=== PATIENT | female | born 1985 | race Caucasian/White ===

== ENCOUNTER → 2021-03-06 07:52 | Outpatient (CLI) | payer OTHER, SELFPAY ==
[2021-03-07 13:33] LABS: SARS-CoV-2 RNA PCR Positive
== END ==
PROVIDERS: PCP Internal Medicine; Visit Provider Internal Medicine
DX: U07.1 COVID-19 (principal)
CPT/HCPCS: C9803; U0003; U0005

== ENCOUNTER 2021-03-15 07:30 | Outpatient (RCR) | payer OTHER, SELFPAY ==
--- NOTE | 2020-05-18 10:04 | PC.NURSE ---
Spoke with Dr. Cruz regarding administration of Bamalanivimab. He already sent patient a message by portal and will forward that to us as well. He advises to proceed with treatment for her COVID and suggests benedryl 25mg prior to infusion. See scanned conversation he forwarded between him and patient as well.
--- NOTE | 2020-05-18 10:10 | PC.NURSE ---
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
[2020-05-18] MEDS: ACETAMINOPHEN 325 MG TABLET 650 MG PO (14:09)
[2020-05-18] MEDS: diphenhydrAMINE HCl CAP 25 MG CAPSULE PO (14:09)
[2020-05-18] MEDS: FAMOTIDINE 20 MG TABLET PO (14:10)
[2020-05-18 14:25] VITALS: BP 140/82; PULSE 94; RESP 16; TEMP 36.8; O2SAT 99
[2020-05-18 16:28] VITALS: BP 133/83; PULSE 80; RESP 14; O2SAT 99
--- NOTE | 2020-05-19 14:41 | PC.NURSE ---
Patient states she is feeling better after Bamlanivimab treatment.
[2021-03-15 07:38] VITALS: BP 151/89; PULSE 85; TEMP 36.8; O2SAT 99
--- NOTE | 2021-03-15 07:53 | PC.NURSE ---
Unable to confirm all home medications because patient unsure of doses.
--- NOTE | 2021-03-15 08:38 | PC.NURSE ---
Patient used own heparin to flush baugh.
--- NOTE | 2021-03-15 08:54 | PC.NURSE ---
Patient insisted on being discharged due to needing to self catherize.
[2021-03-15 08:55] VITALS: BP 143/84; PULSE 87; RESP 20; O2SAT 100
== END 2021-03-15 17:00 ==
LOC: AMCINF 07:30
PROVIDERS: PCP Internal Medicine; Visit Provider Internal Medicine Hematology & Oncology
DX: U07.1 COVID-19 (principal); D84.9 Immunodeficiency, unspecified; D89.40 Mast cell activation, unspecified
CPT/HCPCS: A9270; M0239; M0247; Q0239; Q0247